=== PATIENT | male | born 1985 | race Two or more races ===

== ENCOUNTER → 2017-08-18 | Outpatient (CLI) | payer OTHER | END | disposition home or self-care (01) | LOC: SPEC 12:52 → EEVIPCON 12:52 | DX: R07.89 Other chest pain (principal) | CPT/HCPCS: 36415; 84484 ==

== ENCOUNTER 2021-04-02 16:00 | Emergency (ER) | payer SELFPAY ==
[~2021-04-02] VITALS: Ht 188 cm; Wt 116.0 kg
[2021-04-02 16:05] VITALS: BP 125/69
--- NOTE | 2021-04-02 17:07 | PHYS DOC ---
Past History Past Surgical History: Other Additional Past Surgical Histo: Left hand Alcohol Use: None Adult General Chief Complaint Chief Complaint: HIP PAIN HPI HPI Patient is a 35-year-old male patient with no significant medical history presenting today complaining of 10 out of 10 sharp intermittent left hip pain with swelling, symptoms began this morning. Patient states pain is worse on ambulation and better when laying on the right hip. Denies any trauma. Review of Systems Review of Systems Constitutional: Denies fever or chills [] Musculoskeletal: Reports left hip pain Integument: Denies rash or skin lesions [] Neurologic: Denies headache, focal weakness or sensory changes [] All other systems were reviewed and found to be within normal limits, except as documented in this note. Physical Exam Physical Exam Constitutional: Well developed, well nourished, no acute distress, non-toxic appearance. [] Skin: Warm, dry, no erythema, no rash. [] Back: No tenderness, no CVA tenderness. [] Extremities: Left hip with no obvious deformity, no edema no ecchymosis, tenderness on palpation of the left lateral hip. Full range of motion to the left hip including extension and extension of the hip, internal rotation and external rotation of the hip. +2 left pedal pulse. Cap refill less than 2 seconds in the left lower extremity, sensation intact to the left lower extremity Neurologic: Alert and oriented X 3, normal motor function, normal sensory function, no focal deficits noted. [] Psychologic: Affect normal, judgement normal, mood normal. [] Current Patient Data Vital Signs Vital Signs Date Time Temp Pulse Resp B/P (MAP) Pulse Ox O2 Delivery O2 Flow Rate FiO2 04/02/21 16:05 99.2 90 18 125/69 (87) 98 EKG EKG [] Radiology/Procedures Radiology/Procedures []PROCEDURE: HIP LEFT 2V WITH PELVIS EXAM: Pelvis and left hip, 3 views. HISTORY: Pain. COMPARISON: None. FINDINGS: A frontal view the pelvis and 2 views of the left hip are obtained. There is no fracture, dislocation or subluxation. There is a transitional lumbosacral segment, a normal variant. 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 There is a small benign ossicle or osseous excrescence along the inferior left iliac bone. The femoral head is normal in configuration and seated appropriately. There is a suspected bone island within the proximal femoral metaphysis. IMPRESSION: No acute osseous finding. Electronically signed by: Stephanie Pierce MD (04/02/2021 5:08 PM) [id number] DICTATED AND SIGNED BY: STEPHANIE PIERCE MD DATE: 04/02/211704 CC: JORDEN MCCOLULM Callie MARIA; PCP,NO ~MTH0 0 Heart Score C/O Chest Pain: N/A Risk Factors: Risk Factors: DM, Current or recent (<one month) smoker, HTN, HLP, family history of CAD, obesity. Risk Scores: Risk Factors: DM, Current or recent (<one month) smoker, HTN, HLP, family history of CAD, obesity. Course & Med Decision Making Course & Med Decision Making Pertinent Labs and Imaging studies reviewed. (See chart for details) This is a 35-year-old male patient presenting to the ED today with left hip pain that began this morning, no known injury. Left hip x-rays interpreted by radiologist were negative for any acute findings. Discharged home. Follow-up with Ortho in 1 week with PCP if pain continues Dragon Disclaimer Dragon Disclaimer This electronic medical record was generated, in whole or in part, using a voice recognition dictation system. Departure Departure: Impression: Primary Impression: Left hip pain Disposition: HOME / SELF CARE / HOMELESS Condition: STABLE Referrals: PCP,NO (PCP) ASAD SHOEMAKER Jr. DO follow up in 1-2 weeks Patient Instructions: Hip Pain Additional Instructions: You were seen for left hip pain, your left hip x-rays are negative for any acute findings. Please follow-up with your own primary care doctor or the provided orthopedic doctor in 1 to 2 weeks if pain persists Scripts Methylprednisolone (MEDROL) 4 Mg Tab.ds.pk 1 PKG PO UD, #1 PKG Prov: JORDEN MCCOLLUM [employer] 04/02/21 Tramadol Hcl (TRAMADOL HCL) 50 Mg Tablet 50 MG PO PRN Q6HRS PRN for PAIN, #20 TAB Prov: JORDEN MCCOLLUM Callie [employer] OFFICER 04/02/21 JORDEN MCCOLLUM CROW Apr 02, 2021 17:07
--- NOTE | 2021-04-02 17:11 | RAD ---
EXAM: Pelvis and left hip, 3 views. HISTORY: Pain. COMPARISON: None. FINDINGS: A frontal view the pelvis and 2 views of the left hip are obtained. There is no fracture, d islocation or subluxation. There is a transitional lumbosacral segment, a normal variant. The posteri or elements at this level are congenitally nonfused. There is a small benign ossicle or osseous excre scence along the inferior left iliac bone. The femoral head is normal in configuration and seated junito ropriately. There is a suspected bone island within the proximal femoral metaphysis. IMPRESSION: No acute osseous finding. Electronically signed by: Stephanie Chavez MD (04/02/2021 5:08 PM) [id number]
[2021-04-02] MEDS ORDERED: METH4TAB2 PO (17:36)
[2021-04-02] MEDS ORDERED: TRAM50TA PO (17:36)
== END 2021-04-02 17:20 | disposition home or self-care (01) ==
LOC: ER 16:00
DX: M25.552 Pain in left hip (principal)
CPT/HCPCS: 73502; 99283-25